=== PATIENT | male | born 1975 | race Caucasian/White ===

== ENCOUNTER 2022-08-11 21:34 | Emergency (ER) | payer BC, SELFPAY ==
[2022-08-11 21:51] VITALS: BP 158/99; PULSE 101; RESP 20; TEMP 36.5; O2SAT 99; BMI 35.3
--- NOTE | 2022-08-11 22:37 | ED_ITS ---
HPI - Chest Pain General Chief Complaint: Hypertension Stated Complaint: High blood pressure, discomfort in arm. Time Seen by Provider: 08/11/22 22:08 History of Present Illness HPI narrative: 47-year-old man presenting to the emergency department with concern of high blood pressure and arm tightness with subsequent concerns of his heart. He does have a home wrist cuff blood pressure monitor. Notices blood pressure was little higher recently. Does have a history of PACs but has been feeling any palpitations. He earlier today felt a tightening just above his left elbow around his arm and then some later in the day in his left axilla which resolved and then return to his arm again, same location. No particular weakness loss of sensation. There has been no trauma. Not short of breath. No rashes. No visual changes noted. Feeling that tightness again in his arm going to bed tonight he checked his pressure noting it to be 160 something systolic just thought he should get checked out. He thinks probably he is going to need blood pressure medication soon. His blood pressures last week sounds like were around 140s over 90s. He does endorse a history of getting anxious around this sort of thing and elevated pressures and that that probably was driving some of his s ymptoms today. Says that getting news of an EKG that looks okay has made him feel a lot better and symptoms otherwise seem to have resolved. Thinks his dad had some sort of arrhythmia otherwise does not sound to have a strong family history of ischemic disease. Related Data Home Medications Medication Instructions Recorded Confirmed No Known Home Medications 04/04/22 04/16/22 Allergies Allergy/AdvReac Type Severity Reaction Status Date / Time No Known Drug Allergies Allergy Verified 08/11/22 21:55 Review of Systems Status of ROS Reports: 6 or more systems reviewed and unremarkable except as noted in History and below [facility] Medical History Cardiac arrhythmia Umbilical hernia Surgical History S/P hernia surgery Social History Narrative: Patient denies smoking. He drinks 2 drinks per week. 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 Smoking Status: Never smoker Do you use any of these nicotine containing products: None How often do you have a drink containing alcohol: 4 or more times a week How many standard drinks containing alcohol do you have on a typical day: 5 or 6 How often do you have six or more drinks on one occasion: Weekly AUDIT-C Alcohol total score: 9 Non-prescribed substance use: denies use Exam Narrative Exam Narrative: Pleasant. Mildly anxious. Easily conversant. Breathing easily. Cranial nerves 2-12 intact. Moving all extremities without difficulty. Large man. Drying callused hands. Strong and equal radial pulses. Well-perfused. No supraclavicular crepitus. Lungs are clear. Heart with elevated rate regular rhythm. No MR G appreciated. Abdomen is overweight soft. Examination of the arm and shoulder area I can not reproduce any of this discomfort. Good range of motion at the shoulder, non tender. Const Vital Signs, click to edit/add: Vital Signs - 24 hr 08/11/22 21:51 Temperature 97.7 F Pulse Rate [Pulse Oximeter] 101 H Respiratory Rate 20 Blood Pressure [Right Upper Arm] 158/99 H Pulse Oximetry 99 Oxygen Delivery Method Room Air Documenting provider has reviewed patient's vital signs: yes Course Vital Signs Vital signs: Initial Vital Signs Temperature 97.7 F 08/11/22 21:51 Temperature Source Temporal Artery Scan 08/11/22 21:51 Pulse Rate 101 H 08/11/22 21:51 Pulse Rhythm 08/11/22 21:51 Pulse Strength 3+ Normal 08/11/22 21:51 Respiratory Rate 20 08/11/22 21:51 Blood Pressure 158/99 H 08/11/22 21:51 Blood Pressure Mean 118 08/11/22 21:51 Blood Pressure Position Supine 08/11/22 21:51 Pulse Oximetry 99 08/11/22 21:51 Oxygen Delivery Method 08/11/22 21:51 Vital Signs Temperature 97.7 F 08/11/22 21:51 Pulse Rate 101 H 08/11/22 21:51 Respiratory Rate 20 08/11/22 21:51 Blood Pressure 158/99 H 08/11/22 21:51 Pulse Oximetry 99 08/11/22 21:51 Oxygen Delivery Method 08/11/22 21:51 Temperature 97.7 F 08/11/22 21:51 Pulse Rate 101 H 08/11/22 21:51 Respiratory Rate 20 08/11/22 21:51 Blood Pressure 158/99 H 08/11/22 21:51 Pulse Oximetry 99 08/11/22 21:51 Oxygen Delivery Method 08/11/22 21:51 MDM - Chest Pain MDM Narrative Medical decision making narrative: Certainly this could be ischemic event. Thoracic outlet syndrome?--however this isn't occurring with particular movement of activity. Does have rather large musculature around his upper chest. Does not seem to be of infectious etiology i.e. pneumonia. Vascular disruption perhaps. Does not appear to be radicular from his neck. Anxiety likely exacerbating. Corresponding labs are requested. Initial EKG reviewed by me shows normal sinus without evidence of ischemic changes. Rate of 96 Labs are reassuring. Overall improved. See patient discharge plan Medical Records Data Attestation: I reviewed the patient's medical records. Lab Data Labs: Lab Results 08/11/22 08/11/22 08/11/22 Range/Units 22:50 22:50 22:50 D-Dimer Quant (PE/DVT) 0.11 (0.00-0.50) ug/ml Sodium 139 (135-149) mmol/L Potassium 3.9 (3.6-5.1) mmol/L Chloride 104 (96-114) mmol/L Carbon Dioxide 27 (20-32) mmol/L BUN 18 (5-24) mg/dL Creatinine 1.1 (0.5-1.5) mg/dL Estimated Creat Clear 92.10 Estimated GFR 84 ml/min Glucose 104 (60-115) mg/dL Calcium 8.8 (8.4-10.6) mg/dL Troponin I < 0.01 L (0.01-0.04) ng/mL NT-Pro-B Natriuret Pep < 20 pg/mL POC Troponin I (0.01-0.04) ng/ml 08/11/22 Range/Units 23:02 D-Dimer Quant (PE/DVT) (0.00-0.50) ug/ml Sodium (135-149) mmol/L Potassium (3.6-5.1) mmol/L Chloride (96-114) mmol/L Carbon Dioxide (20-32) mmol/L BUN (5-24) mg/dL Creatinine (0.5-1.5) mg/dL Estimated Creat Clear Estimated GFR ml/min Glucose (60-115) mg/dL Calcium (8.4-10.6) mg/dL Troponin I (0.01-0.04) ng/mL NT-Pro-B Natriuret Pep pg/mL POC Troponin I 0.00 L (0.01-0.04) ng/ml Discharge Plan Discharge Clinical Impression: Arm pain, High blood pressure Patient Disposition: Home, Self-Care Condition: Improved Instructions: Heart Healthy Diet (ED), Hypertension (ED) Additional Instructions: No restrictions at this time. Stay hydrated. I would check your blood pressure maybe every other day after a period of rest and present in 1-2 weeks with those measurements to discuss further with your primary care provider. You might want to do further cardiac evaluation per your conversation with them. Otherwise return for marked increase in persistent pain, increasing shortness of breath, lightheadedness, severe headache. Activity Level: No Restrictions Discharge Diet: Heart Healthy (2 gm sodium, low fat) Prescriptions: No Action No Known Home Medications Follow Up/Referrals: Shayan Zaragoza MD [Primary Care Provider] - Stand Alone Forms: [employer] Info Instructions
[2022-08-11 23:10] LABS: Chloride* 104 mmol/L (96-114)
[2022-08-11 23:11] LABS: Potassium* 3.9 mmol/L (3.6-5.1); Sodium* 139 mmol/L (135-149)
[2022-08-11 23:14] LABS: Blood Urea Nitrogen* 18 mg/dL (5-24); Carbon Dioxide* 27 mmol/L (20-32); Creatinine* 1.1 mg/dL (0.5-1.5); Estimated Glomerular Filt Rate 84 ml/min; Glucose* 104 mg/dL (60-115)
[2022-08-11 23:15] LABS: Calcium* 8.8 mg/dL (8.4-10.6)
[2022-08-11 23:28] LABS: NT Pro B Type NatriureticPept* < 20 pg/mL; Troponin I* < 0.01 ng/mL (0.01-0.04)
[2022-08-11 23:53] LABS: D Dimer Quantitative* 0.11 ug/ml (0.00-0.50)
== END 2022-08-12 00:06 | disposition home or self-care (01) ==
PROVIDERS: Emergency Provider Family Medicine; PCP Family Medicine
DX: M79.603 Pain in arm, unspecified (principal); I10 Essential (primary) hypertension
CPT/HCPCS: 36415; 80048; 83880; 84484; 85379; 99283; 99284